=== PATIENT | male | born 1950 | race Caucasian/White ===

== ENCOUNTER 2020-05-31 11:25 | Emergency (ER) | payer MEDICARE, SELFPAY ==
--- NOTE | 2020-05-31 | ECG_ITS ---
Test Reason : REPEAT Blood Pressure : / mmHG Vent. Rate : 094 BPM Atrial Rate : 094 BPM P-R Int : 180 ms QRS Dur : 086 ms QT Int : 340 ms P-R-T Axes : 040 000 089 degrees QTc Int : 425 ms Normal sinus rhythm Nonspecific ST and T wave abnormality Cannot rule out inferior infarct Abnormal ECG When compared with ECG of 31-MAY-2020 11:44, No significant change was found Referred By: Ren Elmore Electronically Signed By:Wicho Coburn
--- NOTE | ~2020-05-31 | XR_ITS ---
EXAMINATION: XR CHEST CLINICAL INFORMATION: Chest pain COMPARISON: Chest 11/22/2007 TECHNIQUE: Frontal view of the chest was obtained. FINDINGS: No significant abnormality is noted involving the heart, lungs, mediastinum, bony thorax or soft tissues. XR/XR chest 1V IMPRESSION: Unremarkable chest examination.
--- NOTE | 2020-05-31 08:44 | ECG_ITS ---
Test Reason : CHEST PAIN Blood Pressure : / mmHG Vent. Rate : 066 BPM Atrial Rate : 066 BPM P-R Int : 204 ms QRS Dur : 082 ms QT Int : 402 ms P-R-T Axes : 027 -14 034 degrees QTc Int : 421 ms Normal sinus rhythm Inferior infarct , age undetermined Cannot rule out Anterior infarct , age undetermined Abnormal ECG When compared to the previous EKG of No significant changes seen Referred By: Ren Elmore Electronically Signed By:Wicho Coburn
[2020-05-31 11:30] VITALS: BP 170/100; PULSE 88; RESP 16; TEMP 37.1; O2SAT 99; BMI 28.7
--- NOTE | 2020-05-31 11:53 | ED_ITS ---
HPI - Chest Pain General Chief Complaint: Chest Pain Stated Complaint: chest pain Time Seen by Provider: 05/31/20 11:53 Source: patient Mode of arrival: ambulatory Limitations: no limitations History of Present Illness HPI narrative: 45 minutes of chest pain described as MD complaint: chest heaviness Onset (ago): minute(s) (45) Timing of current episode: constant Prior episodes: No Onset: during rest Pain location: substernal Pain radiation: left arm Severity: moderate Quality: tightness and other (heart burn) Relieving factors: nothing Exacerbating factors: exertion Treatment prior to arrival: none Risk Factors Coronary artery disease risk factors: hyperlipidemia and hypertension Related Data Allergies Allergy/AdvReac Type Severity Reaction Status Date / Time No Known Allergies Allergy Verified 05/31/20 11:32 Review of Systems Constitutional: Constitutional: Reports no additional constitutional complaints Eyes: Eyes: Reports no additional eye complaints ENT: Denies dizziness Cardiovascular: Cardiovascular: Reports no additional cardiovascular complaints Respiratory: Respiratory: Reports as per HPI Gastrointestinal: Gastrointestinal: Reports no additional gastrointestinal complaints Musculoskeletal: Musculoskeletal: Reports no additional musculoskeletal complaints Integumentary/Breasts: Skin/Breast: Denies rash Neurologic: Reports system reviewed and no additional complaints, except as documented, Denies dizziness and Denies Sensory deficit (Neuro) Psychiatric: Psychiatric: Denies anxiety PMF Past Medical History Medical History High cholesterol HTN (hypertension) Surgical History History of bladder surgery Knee joint replacement status Social History Social History Advance Directives: No Advance Directives Information Provided: No Physical Exam Vital Signs: Vital Signs: Last Vital Signs Temp 98.7 F 05/31/20 11:30 Pulse 88 05/31/20 12:41 Resp 16 05/31/20 11:30 BP 100/69 05/31/20 12:41 Pulse Ox 99 05/31/20 11:30 Body Mass Index 28.7 Const: General: healthy appearing Nutritional Appearance: average body habitus Orientation/consciousness: oriented to person and patient oriented x3 Limitations: no limitations HENMT: Head: Yes normal to inspection Ears: external ears normal General nose exam: Normal external nose present Mouth: Normal oral and palatal mucosa present and oropharynx normal Throat: Yes posterior oropharynx normal Eyes: General: appearance normal, both eyes and all related structures Neck: Other: supple Neck: Yes normal visual inspection Chest: Chest palpation & inspection: normal inspection of the chest Resp: Auscultation: clear to auscultation bilaterally Cardio: Jugular venous distension: no JVD Rate: regular rate Rhythm: regular rhythm Heart sounds: S1 normal heart sound present and S2 normal heart sound present GI: Inspection: Yes normal to inspection Palpation (GI): Soft to palpation, nontender and No hepatosplenomegaly present Auscultation: normal bowel sounds : General: Yes no CVA tenderness Back/Spine/Pelvis: Back: no CVA tenderness Skin: General skin exam: no rashes or lesions noted Neuro: General: oriented to person and patient oriented x3 Cranial nerves: Yes CN's II-XII intact bilaterally Motor exam (neuro): 5/5 motor strength present throughout Sensory Exam: No Sensory deficit (Neuro) Extrem: General: Yes normal to inspection Psych: Appearance: grossly normal Course Course Course Narrative: Discussed with Dr. Woo, invasive cardiology, will not take patient to laboratory administrative director will accept to PCU MDM - Chest Pain MDM Narrative Medical decision making narrative: initial EKG had st elevation in AVR only, i nvasive dermatologist and dermatopathologist states no immediate cath, subsequent EKG improved Differential Diagnosis Differential diagnosis: Likely unstable angina pectoris, st elevation myocardial infarction and chest pain Lab Data Result diagrams: 05/31/20 11:55 05/31/20 11:54 Labs: Lab Results 05/31/20 05/31/20 05/31/20 Range/Units 11:54 11:54 11:54 WBC (4.8-10.8) X10*3/uL RBC (4.60-5.80) X10*6/uL Hgb (14.0-18.0) g/dl Hct (42-52) % MCV (80-98) fL MCH (27.0-33.0) pg MCHC (31.0-36.0) g/dl RDW (11.0-16.0) % Plt Count (160-400) X10*3/uL MPV (9.4-12.4) fL Immature Gran % (Auto) (0.0-0.4) % Neut % (Auto) (45-73) % Lymph % (Auto) (20-40) % Mcpherson % (Auto) (2-11) % Eos % (Auto) (0-4) % Baso % (Auto) (0-2) % Lymph # (Auto) (1.2-4.9) X10*3/uL Mcpherson # (Auto) (0.1-1.2) X10*3/uL Eos # (Auto) (0.0-0.4) X10*3/uL Baso # (Auto) (0.0-0.2) X10*3/uL Abs Immat Gran (auto) (0.00-0.03) X10*3/uL Absolute Neuts (auto) (2.0-8.3) X10*3/uL Absolute Nucleated RBC (0.0-0.012) X10*3/uL Nucleated RBC % (auto) (0.0-0.2) /100WBC Hold Blue Top SEE NOTE Sodium 141 (135-145) mmol/L Potassium 4.1 (3.3-5.1) mmol/L Chloride 104 (96-108) mmol/L Carbon Dioxide 26 (22-29) mmol/L Anion Gap 15 (12-20) BUN 19 H (9-16) mg/dL Creatinine 0.93 (0.5-1.4) mg/dL Estim Creat Clear Calc 83.7 Estimated GFR > 60 Random Glucose 101 (60-115) mg/dL Calcium 8.9 (8.4-10.2) mg/dL Troponin I High Sens 4.5 (<3.5-35.0) ng/L 05/31/ Range/Units 11:55 WBC 6.7 (4.8-10.8) X10*3/uL RBC 4.91 (4.60-5.80) X10*6/uL Hgb 14.8 (14.0-18.0) g/dl Hct 43.6 (42-52) % MCV 88.8 (80-98) fL MCH 30.1 (27.0-33.0) pg MCHC 33.9 (31.0-36.0) g/dl RDW 12.4 (11.0-16.0) % Plt Count 166 (160-400) X10*3/uL MPV 9.7 (9.4-12.4) fL Immature Gran % (Auto) 0.5 H (0.0-0.4) % Neut % (Auto) 72.4 (45-73) % Lymph % (Auto) 16.2 L (20-40) % Mcpherson % (Auto) 7.4 (2-11) % Eos % (Auto) 2.7 (0-4) % Baso % (Auto) 0.8 (0-2) % Lymph # (Auto) 1.1 L (1.2-4.9) X10*3/uL Mcpherson # (Auto) 0.5 (0.1-1.2) X10*3/uL Eos # (Auto) 0.2 (0.0-0.4) X10*3/uL Baso # (Auto) 0.1 (0.0-0.2) X10*3/uL Abs Immat Gran (auto) 0.03 (0.00-0.03) X10*3/uL Absolute Neuts (auto) 4.8 (2.0-8.3) X10*3/uL Absolute Nucleated RBC 0.000 (0.0-0.012) X10*3/uL Nucleated RBC % (auto) 0.0 (0.0-0.2) /100WBC Hold Blue Top Sodium (135-145) mmol/L Potassium (3.3-5.1) mmol/L Chloride (96-108) mmol/L Carbon Dioxide (22-29) mmol/L Anion Gap (12-20) BUN (9-16) mg/dL Creatinine (0.5-1.4) mg/dL Estim Creat Clear Calc Estimated GFR Random Glucose (60-115) mg/dL Calcium (8.4-10.2) mg/dL Troponin I High Sens (<3.5-35.0) ng/L ECG Data ECG #1: Attestation: I personally reviewed and interpreted this ECG as follows: Interpretation: sinus 90, ST segment elevation AVR, ST depression I and AVL, V4-V6 ECG #2: Attestation: I personally reviewed and interpreted this ECG as follows: Interpretation: sinus 90, improved st depression laterally, ST segment down in AVR Critical Care Time Critical Care Time Attestation: I spent 40 minutes of critical care, with interventions, assessments, speaking to patient, consultants, and family. Discharge Plan Discharge Clinical Impression: Chest pain, ST elevation myocardial infarction (STEMI) Patient Disposition: Xfer Acute Care Hospital Transfer Details: cardiac care
[2020-05-31] MEDS: Heparin Sodium,Porcine 5,000 UNIT/ML VIAL 5000 UNIT IVPUSH (11:58)
[2020-05-31] MEDS: Ticagrelor 90 MG TABLET 180 MG PO (11:59)
[2020-05-31 12:00] VITALS: BP 124/79; BP 159/93; PULSE 100; PULSE 73; RESP 15; TEMP 36.8; O2SAT 97
[2020-05-31] MEDS: Nitroglycerin 0.4 MG TAB.SUBL SUBLINGUAL ×3 (12:00→12:15)
[2020-05-31] MEDS: Aspirin 325 MG TABLET PO (12:00)
[2020-05-31 12:01] LABS: MANUAL DIFF FLAG NO
[2020-05-31 12:07] VITALS: BP 115/70; PULSE 87
--- NOTE | 2020-05-31 12:08 | ECG_ITS ---
Test Reason : CP Blood Pressure : / mmHG Vent. Rate : 076 BPM Atrial Rate : 076 BPM P-R Int : 194 ms QRS Dur : 080 ms QT Int : 352 ms P-R-T Axes : 052 -05 078 degrees QTc Int : 396 ms Normal sinus rhythm Cannot rule out inferior infarct Lateral ST depressions - consider ischemia Abnormal ECG When compared with ECG of 20-NOV-2008 11:12, ST now depressed in Lateral leads Cannot rule out inferior infarct Referred By: Ren Elmore Electronically Signed By:Wicho Coburn
[2020-05-31 12:11] LABS: Basophils Absolute Auto 0.1 X10*3/uL (0.0-0.2); Basophils Percent Auto 0.8 % (0-2); Eosinophils Absolute Auto 0.2 X10*3/uL (0.0-0.4); Eosinophils Percent Auto 2.7 % (0-4); Hematocrit 43.6 % (42-52); Hemoglobin 14.8 g/dl (14.0-18.0); Imm Gran Abs Auto 0.03 X10*3/uL (0.00-0.03); Imm Gran Pct Auto 0.5 % (0.0-0.4); Lymphocytes Absolute Auto 1.1 X10*3/uL (1.2-4.9); Lymphocytes Percent Auto 16.2 % (20-40); Mean Corpuscular HGB Conc 33.9 g/dl (31.0-36.0); Mean Corpuscular Hemoglobin 30.1 pg (27.0-33.0); Mean Corpuscular Volume 88.8 fL (80-98); Mean Platelet Volume 9.7 fL (9.4-12.4); Monocytes Absolute Auto 0.5 X10*3/uL (0.1-1.2); Monocytes Percent Auto 7.4 % (2-11); Neutrophils Absolute Auto 4.8 X10*3/uL (2.0-8.3); Neutrophils Percent Auto 72.4 % (45-73); Platelet Count 166 X10*3/uL (160-400); Red Blood Count 4.91 X10*6/uL (4.60-5.80); Red Cell Distribution Width 12.4 % (11.0-16.0); White Blood Count 6.7 X10*3/uL (4.8-10.8)
--- NOTE | 2020-05-31 12:14 | PC.NURSE ---
@11:52AM DR FAUST ASKS FOR CARDIOLOGY INTERVENTIONALIST FROM [facility] TO BE PAGED [phone] [facility] STAT PAGE LINE UTILIZED @11:56AM DR LEON OF [facility] CALLS US BACK DR FAUST TAKES OVER CALL RIGHT AWAY @11:59 ROBERTO FROM [facility] HERE TO BOOK (AWARE OF BOOK AND HOLD D/T AWAITING ROOM ASSIGNMENT FROM [facility]) @12:12PM CRISTIN FROM [facility] PT TX LINE CALLS SAYS THIS PT WAS ACCEPTED BY DR FRIED AND THEY WILL CALL WHEN BED AVAILABLE ON THEIR PCU
[2020-05-31 12:15] VITALS: BP 113/74; PULSE 78
[2020-05-31 12:27] LABS: Anion Gap 15 (12-20); Blood Urea Nitrogen 19 mg/dL (9-16); Calcium 8.9 mg/dL (8.4-10.2); Carbon Dioxide 26 mmol/L (22-29); Chloride 104 mmol/L (96-108); Creatinine Clr Calc Pharmacy 83.7; Estimated Glomerular Filt Rate > 60; Glucose Random 101 mg/dL (60-115); Potassium 4.1 mmol/L (3.3-5.1); Sodium 141 mmol/L (135-145)
[2020-05-31 12:33] LABS: Troponin-I High Sensitivity 4.5 ng/L (<3.5-35.0)
[2020-05-31 12:41] VITALS: BP 100/69; PULSE 88
[2020-05-31] MEDS: Nitroglycerin/D5W 100 MG/250 ML INFUS..BTL IVCONT (12:41)
--- NOTE | 2020-05-31 14:13 | PC.NURSE ---
@9712 CALL PALCED TO [facility] PT TX LINE TO CHECK ON ROOM ASSIGNMENT FOR THIS PT ANGEL LUIS ANSWERS AND SAYS THEY ARE STILL WAITING FOR AVAILABLE BED FOR ASSIGNMENT @ THIS TIME
[2020-05-31 15:59] LABS: COVID-19 Test Negative (Negative)
[2020-05-31 18:00] VITALS: BP 101/68; PULSE 61
== END 2020-05-31 21:14 | disposition short-term general hospital (02) ==
PROVIDERS: Emergency Provider Emergency Medicine; PCP Internal Medicine
DX: I21.3 ST elevation (STEMI) myocardial infarction of unspecified site (principal); R07.9 Chest pain, unspecified; Z20.822 Contact with and (suspected) exposure to COVID-19; E78.5 Hyperlipidemia, unspecified; I10 Essential (primary) hypertension
CPT/HCPCS: 36415; 71045; 80048; 84484; 85025; 87635; 93005; 96365; 96366; 96374; 99285; 99291

== ENCOUNTER → 2020-06-24 14:19 | Outpatient (BNVA) | payer MEDICARE, SELFPAY | PROVIDERS: PCP Internal Medicine; Visit Provider Urology | DX: N40.1 Benign prostatic hyperplasia with lower urinary tract symptoms (principal); R33.9 Retention of urine, unspecified; R35.1 Nocturia | CPT/HCPCS: 51798; 81002; 99202 ==

== ENCOUNTER 2020-12-08 04:46 | Emergency (ER) | payer MEDICARE, SELFPAY ==
--- NOTE | ~2020-12-08 | XR_ITS ---
EXAMINATION: XR SHOULDER, LEFT CLINICAL INFORMATION: Pain COMPARISON: None TECHNIQUE: Four views of the left shoulder. FINDINGS: No fracture or dislocation. The glenohumeral joint is well aligned. Small osteophytes are present. The acromioclavicular joint is intact with mild hypertrophic degenerative change. The visualized lung is clear. Visualized ribs are intact. XR/XR shoulder LT min 2V IMPRESSION: No acute abnormality. Mild degenerative changes at the left shoulder.
--- NOTE | ~2020-12-08 | XR_ITS ---
EXAMINATION: XR SOFT TISSUE NECK CLINICAL INDICATION: Pain COMPARISON: None TECHNIQUE: 2 views of the soft tissue neck were obtained. FINDINGS: Soft tissue films of the neck demonstrate a normal larynx, pharynx and upper trachea. No soft tissue swelling or opaque foreign body is demonstrated. The epiglottis is unremarkable. Vertebral body height and alignment maintained. The lung apices are clear. XR/XR soft tissue neck IMPRESSION: Normal appearance of the neck soft tissues.
[2020-12-08 05:12] VITALS: BP 152/91; PULSE 75; RESP 20; O2SAT 98; BMI 27.9
--- NOTE | 2020-12-08 06:55 | ED.NECK ---
HPI - Neck Pain/Injury General Chief Complaint: Neck Pain/Injury Stated Complaint: shoulder and neck sharp pain Time Seen by Provider: 12/08/20 06:55 Source: patient Mode of arrival: ambulatory Limitations: no limitations History of Present Illness HPI Narrative: neck and shoulder pain woke up with stiff neck. Unable to sleep due to pain. He states that there was no injury. Just woke up with the pain. MD complaint: neck pain Onset (ago): hour(s) Radiation: left lateral Severity: moderate Quality: sharp Duration: constant Relieving factors: none Exacerbating factors: none Related Data Home Medications Medication Instructions Recorded Confirmed acetaminophen 500 mg tablet 1,000 mg PO TID 06/24/20 aspirin 81 mg tablet,delayed 81 mg PO DAILY 06/24/20 release atorvastatin 10 mg tablet 10 mg PO BEDTIME 06/24/20 atorvastatin 40 mg tablet 80 mg PO BEDTIME 06/24/20 bethanechol chloride 25 mg tablet 25 mg PO TID 06/24/20 clopidogrel 75 mg tablet 75 mg PO DAILY 06/24/20 docusate sodium 100 mg capsule 100 mg PO DAILY PRN 06/24/20 hydrochlorothiazide 25 mg tablet 25 mg PO DAILY 06/24/20 isosorbide mononitrate 30 mg 30 mg PO DAILY 06/24/20 tablet,extended release 24 hr metoprolol succinate 50 mg 50 mg PO DAILY 06/24/20 tablet,extended release 24 hr tamsulosin 0.4 mg capsule 0.4 mg PO DAILY 06/24/20 tramadol 50 mg tablet 50 mg PO Q8H PRN 06/24/20 Previous Rx's Medication Instructions Recorded cyclobenzaprine 10 mg tablet 10 mg PO TID #10 tab 12/08/20 naproxen 500 mg tablet (Naprosyn) 500 mg PO BID #20 tab 12/08/20 Allergies Allergy/AdvReac Type Severity Reaction Status Date / Time No Known Allergies Allergy Verified 06/24/20 14:31 Review of Systems Constitutional: Constitutional: Reports no additional constitutional complaints Eyes: Eyes: Reports no additional eye complaints ENT: Denies dizziness Cardiovascular: Cardiovascular: Reports no additional cardiovascular complaints Respiratory: Respiratory: Reports as per HPI Gastrointestinal: Gastrointestinal: Reports no additional gastrointestinal complaints Musculoskeletal: Musculoskeletal: Reports no additional musculoskeletal complaints Integumentary/Breasts: Skin/Breast: Denies rash Neurologic: Reports system reviewed and no additional complaints, except as documented, Denies dizziness and Denies Sensory deficit (Neuro) Psychiatric: Psychiatric: Denies anxiety [facility] Past Medical History Medical History High cholesterol HTN (hypertension) Surgical History History of bladder surgery Knee joint replacement status Social History Social History Advance Directives: No Advance Directives Information Provided: Yes Physical Exam Vital Signs: Vital Signs: Last Vital Signs Pulse 75 12/08/20 05:12 Resp 20 12/08/20 05:12 BP 152/91 H 12/08/20 05:12 Pulse Ox 98 12/08/20 05:12 Body Mass Index 27.9 Const: General: healthy appearing Nutritional Appearance: average body habitus Orientation/consciousness: oriented to person and patient oriented x3 Limitations: no limitations HENMT: Head: Yes normal to inspection Ears: external ears normal General nose exam: Normal external nose present Mouth: Normal oral and palatal mucosa present and oropharynx normal Throat: Yes posterior oropharynx normal Eyes: General: appearance normal, both eyes and all related structures Neck: Other: left trapezius tenderness with head tilted to right and patient unable to range fully to his left, no evidence of rash or vesicles Chest: Chest palpation & inspection: normal inspection of the chest Resp: Auscultation: clear to auscultation bilaterally Cardio: Jugular venous distension: no JVD Rate: regular rate Rhythm: regular rhythm Heart sounds: S1 normal heart sound present and S2 normal heart sound present GI: Inspection: Yes normal to inspection Palpation (GI): Soft to palpation, nontender and No hepatosplenomegaly present Auscultation: normal bowel sounds : General: Yes no CVA tenderness Back/Spine/Pelvis: Back: no CVA tenderness Skin: General skin exam: no rashes or lesions noted Neuro: General: oriented to person and patient oriented x3 Cranial nerves: Yes CN's II-XII intact bilaterally Motor exam (neuro): 5/5 motor strength present throughout Sensory Exam: No Sensory deficit (Neuro) Extrem: General: Yes normal to inspection Psych: Appearance: grossly normal Course Reevaluation(s) Reevaluation #1: Patient with classic torticollis will start NSAIDS and flexeril Time: 07:03 MDM - Neck Pain/Injury Imaging Data shoulder: Radiologist's impression: IMPRESSION: No acute abnormality. Mild degenerative changes at the left shoulder. soft tissue neck: Radiologist's impression: IMPRESSION: Normal appearance of the neck soft tissues. Discharge Plan Discharge Clinical Impression: Torticollis Strain of neck muscle Qualifiers: Encounter type: initial encounter Qualified Code(s): S16.1XXA - Strain of muscle, fascia and tendon at neck level, initial encounter Patient Disposition: Home, Self-Care Instructions: Muscle Strain (ED) Prescriptions: New cyclobenzaprine 10 mg tablet 10 mg PO TID Qty: 10 RF: 0 naproxen [Naprosyn] 500 mg tablet 500 mg PO BID Qty: 20 RF: 0 Referrals: Cristi Hood MD [Primary Care Provider] - 1 week
[2020-12-08] MEDS: Ketorolac Tromethamine 60 MG/2 ML VIAL IM (07:28)
[2020-12-08 07:33] VITALS: BP 155/95; PULSE 71; RESP 16; TEMP 36.6; O2SAT 98
== END 2020-12-08 07:43 | disposition home or self-care (01) ==
PROVIDERS: Emergency Provider Emergency Medicine; PCP Internal Medicine
DX: M43.6 Torticollis (principal); S16.1XXA Strain of muscle, fascia and tendon at neck level, initial encounter; I10 Essential (primary) hypertension; X58.XXXA Exposure to other specified factors, initial encounter; Y93.9 Activity, unspecified; Y92.9 Unspecified place or not applicable; Y99.9 Unspecified external cause status
CPT/HCPCS: 70360; 73030; 96372; 99284; J1885

== ENCOUNTER 2023-11-02 08:02 | Outpatient (AMB) | payer MEDICARE, SELFPAY ==
--- NOTE | 2023-11-02 08:05 | MHC.OFFWIV ---
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 Pt states he fell right on his knee and states he has a little swelling and pain when he walks if he puts to much pressure on it. Patient Tobacco Use Status: Never used Tobacco Allergies No Known Allergies Allergy (Verified 11/02/23 08:12) HPI HPI Comments History of Present Illness Details 72 y/o male patient who presents to the walk in clinic with c/o right knee pain. Pt injured his knee Weds, when walking his Dog. [facility] Medical History High cholesterol HTN (hypertension) Surgical History History of bladder surgery Knee joint replacement status Social History Patient Tobacco Use Status: Never used Tobacco Review of Systems Const All systems reviewed & are unremarkable except as noted in HPI and below Physical Exam Vital Signs: Last Vital Signs Pulse 67 11/02/23 08:06 BP 118/70 11/02/23 08:06 Pulse Ox 97 11/02/23 08:06 Oxygen Delivery Method Room Air 11/02/23 08:06 BMI result Body Mass Index 29.0 Const General: cooperative and no acute distress Orientation/consciousness: patient oriented x3 Skin General skin exam: no rashes or lesions noted Neuro General: patient oriented x3, gait normal and moves all extremities Extrem Right lower extremity: normal to inspection and knee Details: normal ROM; no tenderness, no swelling, no crepitus and no deformity Left lower extremity: normal to inspection and full ROM Psych Speech and movement: Normal speech and movement present Assessment & Plan Assessment & Plan (1) Contusion of right knee: Code(s): S80.01XA - Contusion of right knee, initial encounter Qualifiers: Encounter type: initial encounter Qualified Code(s): S80.01XA - Contusion of right knee, initial encounter Plan: No obvious Fracture. IceHot Elevate and Rest NSAIDs or Acetaminophen. Coding Level of Care Code Est Pt Level 3 (20523) Diagnoses Contusion of right knee, initial encounter S80.01XA Encounter type: initial encounter Time Spent (min) 15
[2023-11-02 08:06] VITALS: BP 118/70; PULSE 67; O2SAT 97; BMI 29.0
== END 2023-11-02 08:28 | disposition home or self-care (01) ==
PROVIDERS: PCP Internal Medicine; Visit Provider Nurse Practitioner Family
DX: S80.01XA Contusion of right knee, initial encounter (principal)
CPT/HCPCS: 99213

== ENCOUNTER 2023-11-30 08:46 | Outpatient (REF) | payer MEDICARE, SELFPAY ==
--- NOTE | ~2023-11-30 | XR_ITS ---
EXAMINATION: XR KNEE, RIGHT CLINICAL INFORMATION: M17.11 - Unilateral primary osteoarthritis, right knee COMPARISON: None available. TECHNIQUE: Three views of the right knee. FINDINGS: There is mild medial and lateral as well as patellofemoral compartment joint space narrowing, with subtle marginal osteophytic spurs. There is chondrocalcinosis present. Findings suggest CPPD. There is normal alignment. No significant joint effusion present. Soft tissues demonstrate prepatellar soft tissue swelling. This is nonspecific and could be on the basis of bursitis. XR/XR knee RT 3V IMPRESSION: 1. No acute findings right knee. No significant joint effusion. 2. Chondrocalcinosis suggesting CPPD. 3. Mild tricompartmental arthritis. 4. Mild prepatellar soft tissue swelling, nonspecific. Electronically signed by: Warner Talamantes MD 02/07/2024 04:08 PM [facility]
--- NOTE | ~2023-11-30 | XR_ITS ---
EXAMINATION: XR KNEE, LEFT CLINICAL INFORMATION: M25.562 - Pain in left knee COMPARISON: None available. TECHNIQUE: AP view of the left knee. FINDINGS: No fracture, dislocation, or suspicious bone lesion. Normal alignment. Total right knee arthroplasty in place, with components intact and in anatomic alignment. No complication seen. Soft tissues appear normal. XR/XR knee LT 1V IMPRESSION: Right knee arthroplasty without complication. No acute findings. Electronically signed by: Warner Talamantes MD 02/07/2024 04:06 PM [facility]
== END 2023-11-30 08:47 | disposition home or self-care (01) ==
LOC: HO.XRAY 08:46
PROVIDERS: PCP Family Medicine; Visit Provider Physician Assistant
DX: S80.01XA Contusion of right knee, initial encounter (principal); M17.11 Unilateral primary osteoarthritis, right knee; M25.562 Pain in left knee
CPT/HCPCS: 73560; 73562; 99202

== ENCOUNTER → 2023-11-30 08:55 | Outpatient (BNV) | payer MEDICARE, SELFPAY | PROVIDERS: PCP Family Medicine; Visit Provider Radiology Diagnostic Radiology | DX: M17.11 Unilateral primary osteoarthritis, right knee (principal); M25.562 Pain in left knee | CPT/HCPCS: 73560; 73562 ==

== ENCOUNTER 2023-11-30 10:24 | Outpatient (AMB) | payer MEDICARE, SELFPAY ==
[2023-11-30 10:25] VITALS: BMI 29.0
--- NOTE | 2023-11-30 10:25 | MHC.OFFVIS ---
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 Patient reports a couple of days before his [facility] walk in visit on 11/02/23 he fell landing on his right knee. His pain has improved however he has ongoing soreness located at the medial aspect of knee. Denies numbness or tingling. Hx of knee ~1977, unsure of which knee. 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 He reports about a couple of days before his walk in visit on 11/02/23, he fell landing on his right knee. He has improvement in his pain however he continues to have soreness at the medial aspect of his knee. He denies any numbness or tingling. He has a history of left knee in 1977. 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 Review of Systems Const All systems reviewed & are unremarkable except as noted in HPI and below Physical Exam Vital Signs: BMI result Body Mass Index 29.0 Const General: cooperative, healthy appearing, comfortable, no acute distress, well developed and alert Orientation/consciousness: patient oriented x3 HEENT Head: Yes normal to inspection, Yes normocephalic and Yes atraumatic Eyes General: appearance normal, both eyes and all related structures Resp Effort & Inspection: normal respiratory effort and able to speak in complete sentences Cardio Rate: regular rate Peripheral pulses: Peripheral pulses 2+ throughout GI Palpation (GI): Soft to palpation Skin Lesions: no lesions Rashes: no rashes Neuro General: patient oriented x3 Extrem Other: Right knee: Normal to inspection. No swelling, no areas of ecchymosis. No tenderness to palpation over the medial or lateral jointline. He has full ROM. NVI. Results Reviewed Results Reviewed: xray of the right knee obtained today show mild oa, no fractures or dislocations. Assessment & Plan Assessment & Plan (1) Contusion of right knee: Code(s): S80.01XA - Contusion of right knee, initial encounter Category: Medical (2) Osteoarthritis of right knee: Code(s): M17.11 - Unilateral primary osteoarthritis, right knee Category: Medical Plan He will continue with activities as tolerated in absence of pain and no limitations. If symptoms persist or worsen, patient will contact the office, otherwise follow-up as needed. Orders: Orders XR knee RT 3V Today M17.11 - Unilateral primary osteoarthritis, right knee XR knee LT 1V Today M25.562 - Pain in left knee Patient Instructions: Scribed for Jaja William PA-C, by Giuseppe Rossi medical assistant instructor, on 11/30/2023 at 10:30 AM EST.? I, Jaja William PA-C, have personally reviewed and agree with the information entered by the scribe. Coding Level of Care Code New Pt Level 3 (04842) Complex EM visit Add On G2211 Diagnoses Contusion of right knee S80.01XA Osteoarthritis of right knee M17.11
== END 2023-11-30 11:10 | disposition home or self-care (01) ==
PROVIDERS: PCP Internal Medicine; Visit Provider Physician Assistant
DX: S80.01XA Contusion of right knee, initial encounter (principal); M17.11 Unilateral primary osteoarthritis, right knee
CPT/HCPCS: 99203; G2211

== ENCOUNTER 2024-01-24 13:35 | Outpatient (AMB) | payer MEDICARE, SELFPAY ==
--- NOTE | 2024-01-24 13:44 | A.OFFVIS_ITS ---
Intake Visit Reasons: OV-Contusion of right knee-pain worsen Intake Note: Alexander a 70 year old male who presents today for a post operative LT Shoulder , DOS: 01/11/24 DRAdan Patient reports that his pain increased a couple of weeks after his last visit. His pain has improved since he made this appointment. He does mention tenderness at the medial aspect of knee. Denies any recent injury. Allergies No Known Allergies Allergy (Verified 01/24/24 13:48) HPI HPI OV-Contusion of right knee-pain worsen: Details: 73-year-old gentleman who returns to the office today for ongoing right knee pain. He states the pain is located along the medial aspect of the knee. He has some instances where he feels catching in the knee. No sensations of instability. He is able to weightbear as tolerated without difficulty. 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 Review of Systems Const All systems reviewed & are unremarkable except as noted in HPI and below Physical Exam Const General: cooperative, healthy appearing, comfortable, no acute distress, well developed and alert Orientation/consciousness: patient oriented x3 HEENT Head: Yes normal to inspection, Yes normocephalic and Yes atraumatic Eyes General: appearance normal, both eyes and all related structures Resp Effort & Inspection: normal respiratory effort and able to speak in complete sentences Cardio Rate: regular rate Peripheral pulses: Peripheral pulses 2+ throughout GI Palpation (GI): Soft to palpation Skin Lesions: no lesions Rashes: no rashes Neuro General: patient oriented x3 Extrem Other: Right knee: Normal to inspection. No swelling, no areas of ecchymosis. No tenderness to palpation over the medial or lateral jointline. Positive Shae's He has full ROM. NVI. Assessment & Plan Assessment & Plan (1) Osteoarthritis of right knee: Code(s): M17.11 - Unilateral primary osteoarthritis, right knee Category: Medical Plan: We discussed options today and given the continued discomfort with daily activities an MRI of the right knee has been ordered to further evaluate the source of his pain once this is complete we will contact him to discuss options. He is content with this plan. Orders: Orders MR knee RT wo con 01/24/24 M17.11 - Unilateral primary osteoarthritis, right knee Coding Level of Care Code Est Pt Level 3 (93102) Complex EM visit Add On G2211 Diagnoses Osteoarthritis of right knee M17.11
== END 2024-01-24 14:50 | disposition home or self-care (01) ==
PROVIDERS: PCP Family Medicine; Visit Provider Physician Assistant
DX: M17.11 Unilateral primary osteoarthritis, right knee (principal)
CPT/HCPCS: 99213; G2211

== ENCOUNTER → 2024-01-24 13:35 | Outpatient (BNVA) | payer MEDICARE, SELFPAY | PROVIDERS: PCP Family Medicine; Visit Provider Physician Assistant | DX: M17.11 Unilateral primary osteoarthritis, right knee (principal) | CPT/HCPCS: 99212 ==

== ENCOUNTER 2024-02-07 08:21 | Outpatient (REF) | payer MEDICARE, SELFPAY ==
--- NOTE | ~2024-02-07 | XR_ITS ---
EXAMINATION: XRAY ORBITS CLINICAL INFORMATION: PRE-MRI COMPARISON: None. TECHNIQUE: 2 views of the orbits FINDINGS: No radiopaque foreign body in the orbits. NO fracture XR/XR pre mri screening IMPRESSION: No radiopaque foreign body in the orbits. Electronically signed by: Papo Ferrer MD 02/07/2024 01:14 PM [facility]
--- OUTSIDE RECORDS SUMMARY | 2024-02-12 23:56 | XMS_ITS ---
Author Name [facility] Organization Unknown History of Medication Use Medication Directions Dispensed Refills Start Date End Date Stat atorvastatin 80 mg tablet TAKE 1 TABLET BY MOUTH DAILY. 02/16/2023 active amoxicillin 500 mg tablet TAKE 4 TABLETS BY MOUTH 1 HOUR PRIOR TO DENTAL APPOINTMENT. 02/16/2023 active
== END 2024-02-07 08:22 | disposition home or self-care (01) ==
LOC: HO.XRAY 08:21
PROVIDERS: Visit Provider Radiology Diagnostic Radiology
DX: Z13.89 Encounter for screening for other disorder (principal)

== ENCOUNTER 2024-02-25 07:54 | Outpatient (REF) | payer MEDICARE, SELFPAY ==
--- NOTE | ~2024-02-25 | MR_ITS ---
EXAMINATION: MR KNEE WITHOUT CONTRAST RIGHT CLINICAL INFORMATION: Unilateral primary osteoarthritis, right knee M17.11. Right knee pain medial, status post fall . COMPARISON: XR right knee 11/30/2023. TECHNIQUE: MRI of the knee without contrast was performed using routine sequences on a high-field scanner. FINDINGS: MENISCI: Medial Meniscus: Complex tearing involving the medially extruded meniscal body with oblique inner margin and femoral articular surface components. Superiorly displaced meniscal flap measuring up to 0.6 cm in craniocaudal dimension. Complex tearing extends through the inner two thirds of the posterior horn. Lateral Meniscus: Nondisplaced oblique inner margin tear of the meniscal body with degenerative intrasubstance signal. Complex tearing of the posterior root which is attenuated and irregular. LIGAMENTS: Cruciate: Diffusely increased T2 signal throughout the anterior cruciate ligament consistent with mucoid degeneration. More mild degenerative signal within the posterior cruciate ligament. Collateral: Intact. EXTENSOR MECHANISM: Minimal distal quadriceps tendinosis. Intact patellar tendon. Normal patellofemoral alignment. ARTICULAR CARTILAGE/BONE: Patellofemoral Compartment: Lateral patellar facet articular cartilage fissuring with minimal subchondral cystic change. Tiny marginal osteophytes. Medial Compartment: Articular cartilage thinning and signal heterogeneity with tiny marginal osteophytes. Lateral Compartment: Mild articular cartilage signal heterogeneity with tiny marginal osteophytes. JOINT FLUID AND BURSAE: Small joint effusion and trace Aranda's cyst. MR/MR knee RT wo con IMPRESSION: 1. Complex tearing of the medial meniscal body with oblique inner margin and femoral articular surface components. Complex tearing extends through the inner two thirds of the posterior horn. 2. Nondisplaced oblique inner margin tear of the lateral meniscal body with complex tearing of the posterior root. 3. Mucoid degeneration of the anterior cruciate ligament with more mild degenerative signal within the posterior cruciate ligament. 4. Minimal distal quadriceps tendinosis. 5. Mild tricompartmental osteoarthritis. Small joint effusion and trace Aranda's cyst. Electronically signed by: Daniel Luther MD 02/28/2024 10:18 AM [facility]
== END 2024-02-25 07:55 | disposition home or self-care (01) ==
LOC: HO.MRI 07:54
PROVIDERS: PCP Family Medicine; Visit Provider Physician Assistant
DX: M17.11 Unilateral primary osteoarthritis, right knee (principal)
CPT/HCPCS: 73721

== ENCOUNTER 2024-03-31 09:19 | Outpatient (AMB) | payer MEDICARE, SELFPAY ==
[2024-03-31 09:34] VITALS: BMI 29.0
--- NOTE | 2024-03-31 09:34 | MHC.OFFVIS ---
Vital Signs 03/31/24 09:34 Height 5 ft 10 in Weight 202 lb BMI 29.0 Intake Visit Reasons: OV- Right knee MRI review Intake Note: Bernard is a 73 year old male who presents today for a Right Knee MRI review. Patient reports medial right knee pain and experiences occasional catching s/p trip and fall in 11/02/23. Last seen with Jaja who ordered MRI. IMPRESSION: 1. Complex tearing of the medial meniscal body with oblique inner margin and femoral articular surface components. Complex tearing extends through the inner two thirds of the posterior horn. 2. Nondisplaced oblique inner margin tear of the lateral meniscal body with complex tearing of the posterior root. 3. Mucoid degeneration of the anterior cruciate ligament with more mild degenerative signal within the posterior cruciate ligament. 4. Minimal distal quadriceps tendinosis. 5. Mild tricompartmental osteoarthritis. Small joint effusion and trace Aranda's cyst. Allergies No Known Allergies Allergy (Verified 01/24/24 13:48) HPI HPI OV- Right knee MRI review: Details: Bernard is a 73 year old male who presents today for a Right Knee MRI review. Patient reports medial right knee pain and experiences occasional catching s/p trip and fall in 11/02/23. Last seen with Jaja who ordered MRI. Overall he has minimal to no pain. He is not limited in any way. 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 Mild discomfort with medial joint line palpation. Negative Shae's. Results Reviewed Results Reviewed: I personally reviewed the MR images. IMPRESSION: 1. Complex tearing of the medial meniscal body with oblique inner margin and femoral articular surface components. Complex tearing extends through the inner two thirds of the posterior horn. 2. Nondisplaced oblique inner margin tear of the lateral meniscal body with complex tearing of the posterior root. 3. Mucoid degeneration of the anterior cruciate ligament with more mild degenerative signal within the posterior cruciate ligament. 4. Minimal distal quadriceps tendinosis. 5. Mild tricompartmental osteoarthritis. Small joint effusion and trace Aranda's cyst. Assessment & Plan Assessment & Plan (1) Degenerative tear of meniscus: Code(s): M23.309 - Other meniscus derangements, unspecified meniscus, unspecified knee Category: Medical Plan: This is a 73-year-old gentleman with radiographs suggesting medial compartment arthritis and MRI showing degenerative medial meniscus tear and posterior lateral meniscus tear. His symptoms are minimal. He does not have pain and does not feel limited by this. He is 73. The indications for arthroscopy would be pain in the setting of meniscus tear without arthritis. He does not have pain and therefore I do not recommend surgery. I discussed that he may develop worsening pain and arthritis in the future but that surgery would not necessarily change that risk. He will let me know if he develops pain. Coding Level of Care Code Est Pt Level 4 (15751) Diagnoses Degenerative tear of meniscus M23.309
--- OUTSIDE RECORDS SUMMARY | 2024-03-31 13:39 | XMS_ITS | Clinical Summary ---
Author Organization [facility] Address [address] [place] [address] Care Team Providers Care [employer] Name Role Phone Cristi Hood MD Primary Care Provider [phone] Allergies No known active allergies Medications Medication Sig Dispensed Refills Start Date End Date Status hydroCHLOROthiazide (HYDRODIURIL) tablet 25 mg TAKE ONE TABLET BY MOUTH EVERY DAY 2 10/30/2018 Active naproxen (NAPROSYN) 500 MG tablet Take 500 mg by mouth 2 (two) times a day with meals. 1 11/27/2018 Active tamsulosin (FLOMAX) 0.4 MG CAPS Take 0.4 mg by mouth. 0 11/27/2018 Active celecoxib (CeleBREX) 200 MG capsule Take 200 mg by mouth daily. 0 03/10/2020 Active gabapentin (NEURONTIN) 300 MG capsule TAKE ONE CAPSULE BY MOUTH AT BEDTIME 0 03/10/2020 Active JANTOVEN 1 MG tablet Take 5 tablets daily or as directed by physician 50 tablet 0 03/26/2020 Active sulfamethoxazole-tr imethoprim (Bactrim DS) 800-160 MG per tablet Take 1 tablet (160 mg of trimethoprim total) by mouth 2 (two) times a day. 28 tablet 2 04/02/2020 Active PAIN RELIEF EXTRA STRENGTH 500 MG tablet Take 2 tablets (1,000 mg total) by mouth 3 (three) times a day. 90 tablet 1 06/15/2020 Active traMADol (ULTRAM) 50 MG tablet Take 1 tab every 8 hours as needed for pain 40 tablet 0 06/15/2020 Active traMADol (ULTRAM) 50 MG tablet Take 1 tab every 8 hours as needed for pain 90 tablet 0 08/10/2020 Active aspirin 81 MG EC tablet Take 81 mg by mouth. 0 06/03/2020 Active clopidogrel (PLAVIX) 75 MG tablet Take 75 mg by mouth. 0 06/24/2020 Active isosorbide mononitrate (IMDUR) 30 MG 24 hr tablet Take 30 tablets by mouth. 0 06/24/2020 Active metoprolol succinate (TOPROL-XL) 24 hr tablet 50 mg Take 50 mg by mouth. 0 06/24/2020 Active atorvastatin (LIPITOR) tablet 40 mg Take 80 mg by mouth every night at bedtime. 0 02/06/2021 Active cyclobenzaprine (FLEXERIL) 10 MG tablet Take 10 mg by mouth 3 (three) times a day. 0 12/08/2020 Active amoxicillin (AMOXIL) 500 MG tablet Take 4 tabs 1 hour prior to dental appointment 20 tablet 3 02/14/2022 Active Active Problems Problem Noted Date Diagnosed Date Knee stiffness, left 02/18/2021 Postop check 03/23/2020 Tears of meniscus and ACL of left knee 9 Acute medial meniscus tear, left, initial encoun ter 02/11/2019 Left medial knee pain 02/11/2019 Aranda's cyst, unruptured, left 01/01/2019 Family History Medical History Relation Name Comments Hypertension Father Hypertension Mother Relation Name Status Comments Father Mother Social History Tobacco Use Types Packs/Day Years Used Date Smoking Tobacco: Former Cigarettes 1971 Smokeless Tobacco: Never Alcohol Use Standard Drinks/Week Comments No 0 (1 standard drink = 0.6 oz pur e alcohol) Sex and Gender Information Value Date Recorded Sex Assigned at Not on file Gender Identity Not on file Sexual Orientation Not on file Job Start Date Occupation Industry Not on file Not on file Not on file Last Filed Vital Signs Vital Sign Reading Time Taken Comments Blood Pressure - - Pulse - - Temperature - - Respiratory Rate - - Oxygen Saturation - - Inhaled Oxygen Concentration - - Weight 85.7 kg (189 lb) 01/01/2019 3:01 PM EDT Height 175.3 cm (5' 9 ) 01/01/2019 3:01 PM EDT Body Mass Index 27.91 01/01/2019 3:01 PM EDT Plan of Treatment Health Maintenance Due Date Last Done Comments Hepatitis C Screening 1950 COVID-19 Vaccine (#1) 05/17/1950 Depression Screening 1961 Preventative Health Evaluation 11/18/1967 Colon Cancer Screening (Colonoscopy) 1994 Shingrix-Zoster Vaccine (1 o f 2) 11/18/1999 Fall Risk Assessment 2014 DTap / Tdap / Td (2 - Td or Tdap) 08/14/2019 08/13/2009 Influenza Vaccine (#1) 2023 01/19/2020 RSV Adult > 60+ Yrs or (1 - 1-dose 75+ series) 2024 Pneumococcal Vaccine Completed 02/25/2018, 04/12/2015 Hepatitis B Vaccines Aged Out No long er eligible based on patient's age to complete this topic RSV Ped < 20 months Aged Out No longe r eligible based on patient's age to complete this topic Care Teams [employer] Workers Relationship Specialty Start Date End Date Cristi Hood MD PCP - General Internal Medicine 12/17/18
--- OUTSIDE RECORDS SUMMARY | 2024-03-31 13:39 | XMS_ITS | Patient Health Record ---
Author Organization [facility] Address [address] [place] [address] Care Team Providers Care [employer] Officer Name Role Phone Shakeel Vazquez MD Primary Care Provider Tal wahl Yenny Varelae Unavailable [phone] Allergies No Known Allergies Results Component Value Reference Range Notes X ray : Foot, left 3V Reviewed date:10/30/2023 05:28:28 PM Interpretation:See Examination above Performing Lab: Notes/Report: See Examination above X ray : Foot, right 3V Reviewed date:10/30/2023 05:28:40 PM Interpretation:See Examination above Performing Lab: Notes/Report: See Examination above Reason For Referral No Information Medications Medication SIG (Take, Route, Frequency, Duration) Notes Start Date End Date Status Clopidogrel Bisulfate 75 MG 1 tablet Orally Once a day for 30 day(s) Not-Taking Aspirin Low Dose 81 MG TAKE ONE TABLET B Y MOUTH EVERY DAY Oral for 90 Not-Taking Metoprolol Succinate ER 50 MG 1 tablet Orally Once a day for 30 days Active Isosorbide Mononitrate ER 30 MG TAKE ONE TABLET BY MOUTH EVERY DAY Oral for 90 Not-Taking Night Splint AFO - L1930 1 wear at rest for 30 days Active Clopidogrel Bisulfate 75 MG TAKE ONE TABLET BY MOUTH EVERY DAY Oral for 90 Not-Taking Tamsulosin HCl 0.4 MG 1 capsule Orally O nce a day for 30 day(s) Active Metoprolol Succinate ER 50 MG TAKE ONE TABLET BY MOUTH EVERY DAY Oral for 90 Not-Taking Pneumatic Compression Boot 30mm Hg as directed over swollen feet and legs as directed for . 03/17/2022 Not-Taking Acetaminophen Extra Strength 500 MG 2 tablet as needed Orally every 6 hrs for 10 days 02/02/2022 Not-Taking Isosorbide Mononitrate ER 30 MG 1 tablet in the morning Orally Once a day for 30 day(s) Not-Taking Tamsulosin HCl 0.4 MG TAKE ONE CAPSULE B Y MOUTH EVERY DAY 30 MINUTES AFTER THE SAME MEAL EVERY DAY Oral for 90 Not-Taking Aspirin Low Dose Act keaton Atorvastatin Calcium 40 MG TAKE TWO TABL ETS BY MOUTH AT BEDTIME Oral for 90 Not-Taking Atorvastatin Calcium Active Atorvastatin Calcium 40 MG 1 tablet Oral ly Once a day for 30 day(s) Not-Taking Gabapentin 300 MG 1 capsule Orally at bedtime for 10 days 02/02/2022 Not-Taking Ibuprofen 800 MG 1 tablet every Orall y every 6 hrs for 10 days 02/02/2022 Not-Taking Immunizations Vaccine Route Administration Date Status Comme nts COVID-19 Moderna Vaccine Unknown 05/30/2021 Administere d Unsure of dates Social History Tobacco Use: Social History Observation Description Date Details (start date - stop date) Never Smoker NA - NA Tobacco use other than smoking: Question Answer Notes Are you an other tobacco user? No Tobacco Control (Standard) Question Answer Notes Tobacco use: Nonsmoker Additional Findings: Tobacco non-user Ex-cigaret te smoker Problems Problem Type SNOMED Code ICD Code Onset Dates Problem Status W/U Status Risk Notes Problem Acquired hallux valgus (70144248) Hallux valgus (acquired), left foot (M20.12) Active confirmed Problem Localized, primary osteoarthritis of the ankle and/or foot (362053564) Primary osteoarthritis, left ankle and foot (M19.072) Active confirmed Problem Acquired hallux valgus (37562804) Hallux valgus (acquired), right foot (M20.11) Active confirmed Problem [id number] Plantar fasciitis, right (M72.2) Active confirmed Problem Osteoarthritis of midtarsal joint of left foot (0062376229260309) Osteoarthritis of midtarsal joint of left foot (M19.072) Active confirmed Problem Osteoarthritis of midtarsal joint of right foot (1894803763597152) Osteoarthritis of midtarsal joint of right foot (M19.071) Active confirmed Problem 18823992 Essential hypertension (I10) Active confirmed Vital Signs Blood pressure diastolic 81 mm Hg 03/27/2024 Height 7by82ao in 03/27/2024 Blood pressure systolic 125 mm Hg 03/27/2024 Weight 200 lbs 03/27/2024 BMI 28.69 kg/m2 03/27/2024 Procedures Procedure Date Ordered Date Performed Result Body Sit e 11246,N8636-[id number] TENDON SHEATH/LIGAMENT 01/03/2024 N/A ,S9161-[id number] TENDON SHEATH/LIGAMENT 03/27/2024 N/A Encounters Encounter Location Date Provider Diagnosis [address] [place] [address] 10/30/2023 Gabrielle Black Pain in left foot M79.672 ; Pain in left ankle and joints of left foot M25.572 ; Bursitis of left foot M77.52 ; Osteoarthritis of midtarsal joint of left foot M19.072 ; Pain in right foot M79.671 ; Pain in right ankle and joints of right foot M25.571 ; Bursitis of right foot M77.51 ; 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 ; Plantar fasciitis, bilateral M72.2 ; Calcaneal spur, right foot M77.31 ; Other myositis of right foot M60.871 ; Calcaneal spur, left foot M77.32 and Other myositis of left foot M60.872 [facility] [address] [place] [address] 01/03/2024 Gabrielle Black Pain in left foot M79.672 ; Pain in left ankle and joints of left foot M25.572 ; Bursitis of left foot M77.52 ; Osteoarthritis of midtarsal joint of left foot M19.072 ; Pain in right foot M79.671 ; Pain in right ankle and joints of right foot M25.571 ; Bursitis of right foot M77.51 ; 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 ; Plantar fasciitis, bilateral M72.2 ; Calcaneal spur, right foot M77.31 ; Other myositis of right foot M60.871 ; Calcaneal spur, left foot M77.32 and Other myositis of left foot M60.[address] [place] [address] 02/13/2024 Gabrielle Black Bursitis of left al t M77.52 ; Plantar fasciitis, bilateral M72.2 ; Osteoarthritis of midtarsal joint of left foot M19.072 ; Bursitis of right foot M77.51 ; 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 ; Other myositis of right foot M60.871 and Other myositis of left foot M60.[address] [address] 03/27/2024 Gabrielle Black Pain in right foot M79.671 ; Plantar fasciitis, right M72.2 ; Pain in right ankle and joints of right foot M25.571 ; Bursitis of right foot M77.51 ; Calcaneal spur, right foot M77.31 and Other myositis of right foot M60.[address] [address] 03/20/2024 Gabrielle Varela Assessments Encounter Date Diagnosis (ICD Code) Assessment Notes Treatment Notes Treatment Clinical Notes Section Notes 10/30/2023 Pain in left ankle and joints of left foot (ICD-10 - M25.572) 10/30/2023 Pain in left foot (ICD-10 - M79.672) 01/03/2024 Pain in left ankle and joints of left foot (ICD-10 - M25.572) 01/03/2024 Pain in left foot (ICD-10 - M79.672) 02/13/2024 Bursitis of left foot (ICD-10 - M77.52) 02/13/2024 Plantar fasciitis, bilateral (ICD-10 - M72.2) Response to treatment - Improvement 03/27/2024 Pain in right foot (ICD-10 - M79.671) n 03/27/2024 Plantar fasciitis, right (ICD-10 - M72.2) Patient Educated with: RICE THERAPY.pdf (RICE THERAPY.pdf) Patient Educated with: INJECTIONTHER APY.pdf (INJECTIONTHE RAPY.pdf) n 03/27/2024 Pain in right ankle and joints of right foot (ICD-10 - M25.571) n 02/13/2024 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-10 - M19.072) 01/03/2024 Bursitis of left foot (ICD-10 - M77.52) 10/30/2023 Bursitis of left foot (ICD-10 - M77.52) 01/03/2024 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-10 - M19.072) 10/30/2023 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-10 - M19.072) 02/13/2024 Bursitis of right foot (ICD-10 - M77.51) 03/27/2024 Bursitis of right foot (ICD-10 - M77.51) n 02/13/2024 Osteoarthritis of midtarsal joint of right foot (ICD-10 - M19.071) 03/27/2024 Calcaneal spur, right foot (ICD-10 - M77.31) n 01/03/2024 Pain in right foot (ICD-10 - M79.671) 10/30/2023 Pain in right foot (ICD-10 - M79.671) 10/30/2023 Pain in right ankle and joints of right foot (ICD-10 - M25.571) 01/03/2024 Pain in right ankle and joints of right foot (ICD-10 - M25.571) 02/13/2024 Other myositis of right foot (ICD-10 - M60.871) 03/27/2024 Other myositis of right foot (ICD-10 - M60.871) n 02/13/2024 Other myositis of left foot (ICD-10 - M60.872) 01/03/2024 Bursitis of right foot (ICD-10 - M77.51) 10/30/2023 Bursitis of right foot (ICD-10 - M77.51) 10/30/2023 Osteoarthritis of midtarsal joint of right foot (ICD-10 - M19.071) 01/03/2024 Osteoarthritis of midtarsal joint of right foot (ICD-10 - M19.071) 10/30/2023 Plantar fasciitis, bilateral (ICD-10 - M72.2) Patient Educated with: HEEL CORD STRETCHES.pdf (HEEL CORD STRETCHES.pdf ) Patient Educated with: RICE THERAPY.pdf (RICE THERAPY.pdf) 01/03/2024 Plantar fasciitis, bilateral (ICD-10 - M72.2) Resistant to previous conservative treatment right Patient Educated with: RICE THERAPY.pdf (RICE THERAPY.pdf) 01/03/2024 Calcaneal spur, right foot (ICD-10 - M77.31) 10/30/2023 Calcaneal spur, right foot (ICD-10 - M77.31) 10/30/2023 Other myositis of right foot (ICD-10 - M60.871) 01/03/2024 Other myositis of right foot (ICD-10 - M60.871) 01/03/2024 Calcaneal spur, left foot (ICD-10 - M77.32) 10/30/2023 Calcaneal spur, left foot (ICD-10 - M77.32) 10/30/2023 Other myositis of left foot (ICD-10 - M60.872) 01/03/2024 Other myositis of left foot (ICD-10 - M60.872) 03/27/2024 Other n Plan Of Treatment Pending Test Test Name Order Date X ray : Foot, left 3V 07/13/2022 X ray : Foot, left 3V 10/19/2022 [id number], [id number]/[id number], JOINT/BURSA 0 10/19/2022 34830, [id number]/[id number], JOINT/BURSA 0 10/03/2021 37675, [id number]/INJECT, JOINT/BURSA 0 07/13/2022 52656,[id number] TENDON SHEATH/LIGAMENT 1 [id number] TENDON SHEATH/LIGAMENT 0 03/27/2024 Insurance Providers Payer Name Payer Address Payer Phone Subscriber Number Group Number Insured Name Patient Relationship to Insured Coverage Start Date Coverage End Date [employer] [place] [employer] [facility] [address] [place] [address] [id number] Bernard Underwood Self - patient is the insured Medical (General) History Medical History History ICD Code Cataracts High blood pressure Measles Chicken pox Joint implants/screws Surgical History Surgery Date(Month/Year) rotator cuff 05/2010 left knee replacement 03/2020 foot surgery 02/2022
--- OUTSIDE RECORDS SUMMARY | 2024-03-31 13:39 | XMS_ITS ---
[facility] [place] Address [address] [place] [address] Care Team Providers Care Nursing Home Physician Name Role Phone Shakeel Vazquez MD Primary Care Provider Tal wahl Gabrielle Varela Unavailable [phone] Allergies No Known Allergies REASON FOR VISIT pcp 11/2023, Foot pain, Heel pain Medications Medication SIG (Take, Route, Frequency, Duration) Notes Start Date End Date Status Tamsulosin HCl 0.4 MG TAKE ONE CAPSULE B Y MOUTH EVERY DAY 30 MINUTES AFTER THE SAME MEAL EVERY DAY Oral for 90 Not-Taking Aspirin Low Dose 81 MG TAKE ONE TABLET B Y MOUTH EVERY DAY Oral for 90 Not-Taking Metoprolol Succinate ER 50 MG TAKE ONE TABLET BY MOUTH EVERY DAY Oral for 90 Not-Taking Isosorbide Mononitrate ER 30 MG TAKE ONE TABLET BY MOUTH EVERY DAY Oral for 90 Not-Taking Clopidogrel Bisulfate 75 MG TAKE ONE TABLET BY MOUTH EVERY DAY Oral for 90 Not-Taking Pneumatic Compression Boot 30mm Hg as directed over swollen feet and legs as directed for . 03/17/2022 Not-Taking Atorvastatin Calcium 40 MG TAKE TWO TABL ETS BY MOUTH AT BEDTIME Oral for 90 Not-Taking Atorvastatin Calcium 40 MG 1 tablet Oral ly Once a day for 30 day(s) Not-Taking Gabapentin 300 MG 1 capsule Orally at bedtime for 10 days 02/02/2022 Not-Taking Ibuprofen 800 MG 1 tablet every Orall y every 6 hrs for 10 days 02/02/2022 Not-Taking Isosorbide Mononitrate ER 30 MG 1 tablet in the morning Orally Once a day for 30 day(s) Not-Taking Clopidogrel Bisulfate 75 MG 1 tablet Orally Once a day for 30 day(s) Not-Taking Acetaminophen Extra Strength 500 MG 2 tablet as needed Orally every 6 hrs for 10 days 02/02/2022 Not-Taking Metoprolol Succinate ER 50 MG 1 tablet Orally Once a day for 30 days Active Night Splint AFO - L1930 1 wear at rest for 30 days Active Tamsulosin HCl 0.4 MG 1 capsule Orally O nce a day for 30 day(s) Active Aspirin Low Dose Act keaton Atorvastatin Calcium Active Social History Tobacco Use: Social History Observation Description Date Details (start date - stop date) Former Smoker NA - NA Tobacco use other than smoking: Question Answer Notes Are you an other tobacco user? No Tobacco Control (Standard) Question Answer Notes Tobacco use: Former smoker Additional Findings: Tobacco non-user Ex-cigaret te smoker AUDIT-C (Standard) Question Answer Notes Did you have a drink containing alcohol in the p ast year? 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 ; Bursitis of right foot M77.51 ; 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 ; Other myositis of right foot M60.871 and Other myositis of left foot M60.872 Assessments Encounter Date Diagnosis (ICD Code) Assessment Notes Treatment Notes Treatment Clinical Notes Section Notes 02/13/2024 Bursitis of left foot (ICD-10 - M77.52) 02/13/2024 Plantar fasciitis, bilateral (ICD-10 - M72.2) Response to treatment - Improvement 02/13/2024 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-10 - M19.072) 02/13/2024 Bursitis of right foot (ICD-10 - M77.51) 02/13/2024 Osteoarthritis of midtarsal joint of right foot (ICD-10 - M19.071) 02/13/2024 Other myositis of right foot (ICD-10 - M60.871) 02/13/2024 Other myositis of left foot (ICD-10 - M60.872) Plan Of Treatment Next Appt Details Follow Up: prn, Reason: Progress Notes * Bernard SCOTT RDOB:[birth year] (73 yo M)Acc No.[id number]:02/13/2024 Progress Notes Patient:?Bernard SCOTT Provider:?Gabrielle Varela DPM :1950???Age:73 Y???Sex:Male Marcus e:02/13/2024 Address:[address] [place], [place] [id number] Pcp:Shakeel Vazquez MD Subjective: * Chief Complaints: * ???Pcp 11/2023Foot painHeel pain * HPI: ???Foot Pain:?Nature:?aching , stiffness , swelling , throbbing.?Location:?Top , Midfoot, B/L.?Duration:?several months.?Course:?, improved, at 100 %.?Treatments:?rest/alter normal daily activity.?Heel pain:?Nature:?tenderness, sharp pain, stiffness.?Location:?Proximal plantar aspect of Heel , B/L.?Duration:?several months.?Course:?, improved, at approximately 70_ %.?Aggravated:?standing, walking, walking first thing in the morning/after rest.?Treatments:?rest/alter normal daily activity, corticosteriod injection (1R).? * ROS:?General/Constitutional:?Nausea?denies.?Vomiting?denies.?Hunger Thirst?denies.?Loss appetite?denies.?Chills?denies.?Fatigue?denies.?Fever?denies.?Night Sweats?denies.?Unexplained weight loss?denies.?Unexplained weight gain?denies.?HEENTM:?Dentures?denies.?Dizziness?denies.?Glasses/contacts?admits.?Retinopathy?de nies.?Blurred/double vision?denies.?TMJ?denies.?Discharge/drainage?denies.?Implants?denies.?Sore throat?denies.?Dental implants?denies.?Hard of hearing ?denies.?Difficulty chewing/swallowing/speaking?denies.?Nose bleeds?denies.?Sore mouth?denies.?Respiratory:?On Oxygen?denies.?Pneumonia/pleurisy?denies.?Bronchitis?denies.?Emphysema?denies.?C oughing?denies.?Cough blood?denies.?Shortness of breath?denies.?Wheezing?denies.?Cardiovascular:?Pacemaker?denies.?MVP?denies.?WPW?denies.?CHF?denies.?Heart attack?admits.?Septal defect?denies.?Rapid beat?denies.?Chest pain ?denies.?Atrial Fib.?denies.?Murmur/Palpitations?denies.?Gastrointestinal:?Hemorrhoids?denies.?Stomach/Abdominal pain?denies.?Dark blood stool?denies.?Irritable bowel ?denies.?Constipation?denies.?Diarrhea?denies.?Hematology:?Swelling?denies.?Clots?denies.?Varicose Veins?denies.?Bruising?denies.?Bleeding problem?denies.?Genitourinary:?Blood urine?denies.?Frequent/Painfu/urination/bladder control?denies.?Kidney stones?denies.?Infection (UTI)?denies.?Nephropathy?denies.?sex trans dis (STD)?denies.?Prostate?admits.?Musculoskeletal:?Hammertoes?denies.?Bunions?denies.?Back Pain?denies.?Muscle Cramps/ Resting?denies.?Muscle cramps / walking?denies.?Generalized aches and pains?denies.?Weakness?denies.?Integ.:?Meléndez?denies.?Scars?denies.?Corns/calluses?denies.?Ingrown nails?denies.?Painful nails?denies.?Open Sores?denies.?Rashes?denies.?Neurologic:?Difficulty sleeping?denies.?Brain disorder?denies.?Numbness?denies.?Balance trouble?denies.?Confusion?denies.?Fainting/blackouts?denies.?Tingling?denies.?Tr emors?denies.? * Medical History:? * Surgical History:?rotator cu ff 05/2010left knee replacement 03/2020foot surgery 02/2022 * Hospitalization/Major Diagno stic Procedure:?Denies Past Hospitalization * Family History:?Mother: joe krause, diagnosed with Unspecified essential hypertension.?Father: , diagnosed with Other malignant neoplasm of unspecified site, Diabetic - NIDDM, Unspecified essential hypertension.? * Social History:?Tobacco Use:?Tobacco use other than smoking?Are you an other tobacco user??No ?Tobacco Control (Standard)?Tobacco use:?Former smoker ?Additional Findings: Tobacco non-user?Ex-cigarette smoker ???Drugs/Alcohol:?Drugs?Have you used drugs other than those for medical reasons in the past 12 months??No ???Miscellaneous:?Caffeine: yes, 1-2 cups per day. ?Children: yes. ?Exercise: yes, walking, working, softball. ?Marital status: . ?Occupation: Works Part-time. ???Drug/Alcohol:?AUDIT-C (Standard)?Did you have a drink containing alcohol in the past year??No ?Points?0 ?Interpretation?Negative * Medications:?TakingAtorvasta tin Calcium Aspirin Low Dose Tamsulosin HCl 0.4 MG Capsule 1 capsule Orally Once a day Night Splint AFO - L1930 1 wear at rest Metoprolol Succinate ER 50 MG Tablet Extended Release 24 Hour 1 tablet Orally Once a day Taking Atorvastatin Calcium Taking Aspirin Low Dose Taking Tamsulosin HCl 0.4 MG Capsule 1 capsule Orally Once a day Taking Night Splint AFO - L1930 1 wear at rest Taking Metoprolol Succinate ER 50 MG Tablet Extended Release 24 Hour 1 tablet Orally Once a day Not-Taking/PRNClopidogrel Bisulfate 75 MG Tablet 1 tablet Orally Once a day Isosorbide Mononitrate ER 30 MG Tablet Extended Release 24 Hour 1 tablet in the morning Orally Once a day Acetaminophen Extra Strength 500 MG Tablet 2 tablet as needed Orally every 6 hrs Pneumatic Compression Boot 30mm Hg wear as directed over swollen feet and legs as directed Ibuprofen 800 MG Tablet 1 tablet every Orally every 6 hrs Gabapentin 300 MG Capsule 1 capsule Orally at bedtime Atorvastatin Calcium 40 MG Tablet 1 tablet Orally Once a day Atorvastatin Calcium 40 MG Tablet TAKE TWO TABLETS BY MOUTH AT BEDTIME Oral Metoprolol Succinate ER 50 MG Tablet Extended Release 24 Hour TAKE ONE TABLET BY MOUTH EVERY DAY Oral Clopidogrel Bisulfate 75 MG Tablet TAKE ONE TABLET BY MOUTH EVERY DAY Oral Isosorbide Mononitrate ER 30 MG Tablet Extended Release 24 Hour TAKE ONE TABLET BY MOUTH EVERY DAY Oral Aspirin Low Dose 81 MG Tablet Delayed Release TAKE ONE TABLET BY MOUTH EVERY DAY Oral Tamsulosin HCl 0.4 MG Capsule TAKE ONE CAPSULE BY MOUTH EVERY DAY 30 MINUTES AFTER THE SAME MEAL EVERY DAY Oral Medication List reviewed and reconciled with the patientNot-Taking/PRN Clopidogrel Bisulfate 75 MG Tablet 1 tablet Orally Once a day Not-Taking/PRN Isosorbide Mononitrate ER 30 MG Tablet Extended Release 24 Hour 1 tablet in the morning Orally Once a day Not-Taking/PRN Acetaminophen Extra Strength 500 MG Tablet 2 tablet as needed Orally every 6 hrs Not-Taking/PRN Pneumatic Compression Boot 30mm Hg wear as directed over swollen feet and legs as directed Not-Taking/PRN Ibuprofen 800 MG Tablet 1 tablet every Orally every 6 hrs Not-Taking/PRN Gabapentin 300 MG Capsule 1 capsule Orally at bedtime Not-Taking/PRN Atorvastatin Calcium 40 MG Tablet 1 tablet Orally Once a day Not-Taking/PRN Atorvastatin Calcium 40 MG Tablet TAKE TWO TABLETS BY MOUTH AT BEDTIME Oral Not-Taking/PRN Metoprolol Succinate ER 50 MG Tablet Extended Release 24 Hour TAKE ONE TABLET BY MOUTH EVERY DAY Oral Not-Taking/PRN Clopidogrel Bisulfate 75 MG Tablet TAKE ONE TABLET BY MOUTH EVERY DAY Oral Not-Taking/PRN Isosorbide Mononitrate ER 30 MG Tablet Extended Release 24 Hour TAKE ONE TABLET BY MOUTH EVERY DAY Oral Not-Taking/PRN Aspirin Low Dose 81 MG Tablet Delayed Release TAKE ONE TABLET BY MOUTH EVERY DAY Oral Not-Taking/PRN Tamsulosin HCl 0.4 MG Capsule TAKE ONE CAPSULE BY MOUTH EVERY DAY 30 MINUTES AFTER THE SAME MEAL EVERY DAY Oral Medication List reviewed and reconciled with the patient * Allergies:?N.K.D.A.yes[Aller gies Verified] Objective: * Vitals:?Ht: 5ft 10in, Wt:200 , BMI:28.69, Shoe size: 11, BP:136/85mm Hg, Ht-cm: 177.8 cm, Wt-k.72 kg. * Examination: ???General Examination: ?GENERAL APPEARANCE:?Reveals a pleasant, alert, well nourished, well- developed, well hydrated individual, who demonstrates proper attention to hygiene/body habitus, and is in no acute distress, Pt serves as own historian for office visit today.?ORIENTED:?person, place, and time.?Vascular: ?DP PULSES(B):?2/4, B/L.?PT PULSES(B):?2/4, B/L.?CAPILLARY FILL TIME:?immediate, all digits, B/L.?TROPHIC CONDITION-TEXTURE/ELASTICITY/TURGOR/HAIR GROWTH(B):?normal, B/L.?TEMPERTURE GRADIENT(C):?normal, warm to cool, proximal to distal, B/L, B/L.?Neurological: ?SENSORY:?Neurological exam reveals intact sensorium, pain sensation normal, vibration sensation intact, pinprick sensation is normal in the lower extremities, Pt denies, anesthesia, burning, paresthesia, tingling, B/L.?TINEL'S COMPRESSION:? Negative, Medial dorsal cutaneous nerve distribution, Intermediate dorsal cutaneous nerve distribution, Deep peroneal nerve distribution, B/L ,.?Heel Pain: ?INSPECTION REVEALS:?Pain on Palpation to Plantar Fascia med. and central bands, intrinsic musc., infra-calcaneal bursa, and med calc tubercle, B/L, No pain: posterior/superior heel, achilles bursa/tendon, sinus tarsi, peroneals, or with lateral heel compression; no limited STJ ROM, calor, or ecchymosis , B/L, Approximately 70 percent LESS.?Orthopedic: ?MUSCLE STRENGTH:?5/5 all groups in a symmetrical fashion, B/L.?FOOT MORPHOLOGY:?B/L , Pes Planus structure, Decreased Ankle joint dorsiflexion ROM, knee extended , dorsal , midfoot b/l.?FOOTWEAR:?, good condition.? 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 Plan: * Treatment: * Procedure Codes:? * Preventive Medicine:? ??Counseling:?Discussion:?-12: Office or other outpatient visit for the evaluation and management of an established patient, which required a medically appropriate history and/or examination and STRAIGHTFORWARD level of MEDICAL DECISION MAKING, 1 SELF-LIMITED OR MINOR PROBLEM, MINIMAL- NO AMOUNT/COMPLEXITY OF DATA TO BE REVIEWED/ANALYZED, AND MINIMAL RISK OF COMPLICATION/MORBIDITY. The visit on the day of the encounter encompassed interpreting the data and educating the patient as to the nature of their condition, treatment options available according to their individual PMH, meds, allergies, and overall health/living conditions, as well as any potential risks or complications that may occur from a failure to adhere to, and participate in, the recommended course of therapy. The discussion included a complete verbal, and/or written explanation of the examination results, any x-rays taken, the proposed diagnosis, and outline of the treatment plan. A schedule for future care needs was also explained. The patient verbalized an understanding of the instructions at this time and agreed to be an active participant in their treatment. If the patient should think of any questions or concerns after the visit, I have encouraged the patient to call the office, Given recent successful results to treatment, The patient wishes to continue with the present treatment plan for their condition.? ??Screening/Special Tests:?FALLS: Screening for Future Fall Risk?Have you had two or more falls in the past year??No ?Have you had any falls with injury in the past year??No * Follow Up:?prn * Images: * Sign off status: Completed true * Provider:?Gabrielle Varela DPM Date:?2023 Generated for Bladimir green/Laila/Regino on:?03/31/2024 01:39 PM EST History and Physical Notes * HPI (History of Present Illness) Category Sub-Category Detail Notes Category Not es Heel pain Duration: several months Nature: tenderness, sharp pa in, stiffness Location: Proximal plantar asp ect of Heel , B/L Aggravated: standing, walking, w alking first thing in the morning/after rest Course: , improved, at appro ximately 70_ % Treatments: rest/alter normal da ammy activity, corticosteriod injection (1R) Foot Pain Nature: aching , stiffness , swellin g , throbbing Location: Top , Midfoot, B/L Duration: several months Course: , improved, at 100 % Treatments: rest/alter normal da ammy activity Examination Category Sub-Category Detail Notes Category Not es Heel Pain INSPECTION REVEALS: Pain on Palp ation to Plantar Fascia med. and central bands, intrinsic musc., infra-calcaneal bursa, and med calc tubercle, B/L, No pain: posterior/superior heel, achilles bursa/tendon, sinus tarsi, peroneals, or with lateral heel compression; no limited STJ ROM, calor, or ecchymosis , B/L, Approximately 70 percent LESS Neurological SENSORY: Neurological exa m reveals intact sensorium, pain sensation normal, vibration sensation intact, pinprick sensation is normal in the lower extremities, Pt denies, anesthesia, burning, paresthesia, tingling, B/L TINEL'S COMPRESSION: Negative, Medial do rsal cutaneous nerve distribution, Intermediate dorsal cutaneous nerve distribution, Deep peroneal nerve distribution, B/L , Orthopedic GAIT ABNORMALITY: FOOT MORPHOLOGY: B/L , Pes Planus str ucture, Decreased Ankle joint dorsiflexion ROM, knee extended , dorsal , midfoot b/l FOOTWEAR: , good condition MUSCLE STRENGTH: 5/5 all groups in a symmetrical fashion, B/L General Examination GENERAL APPEARANCE: Reveals a pleasant, alert, well nourished, well-developed, well hydrated individual, who demonstrates proper attention to hygiene/body habitus, and is in no acute distress, Pt serves as own historian for office visit today ORIENTED: person, place, and t bobo Vascular DP PULSES (B): 2/4, B/L PT PULSES (B): 2/4, B/L CAPILLARY FILL TIME: immediate, all digi ts, B/L TEMPERTURE GRADIENT (C): normal, warm to cool, proximal to distal, B/L, B/L TROPHIC CONDITION-TEXTURE/ELASTICITY/TURGOR/HAIR GROWTH (B): normal, B/L
--- OUTSIDE RECORDS SUMMARY | 2024-03-31 13:40 | XMS_ITS ---
Author Organization [facility] Address [address] [place] [address] Care Team Providers Care Emergency Room Physician Name Role Phone Shakeel Vazquez MD Primary Care Provider UnaGabrielle Harrington Unavailable [phone] REASON FOR VISIT cortisone inj Encounters Encounter Location Date Provider Diagnosis [facility] [address] [place] [address] 03/20/2024 Gabrielle Varela Plan Of Treatment No Information Progress Notes * Bernard SCOTT RDOB:[birth year] (73 yo M)Acc No.[id number]:03/20/2024 Patient:?Bernard SCOTT :1950???Age:73 Y???Sex:Male Address:[place] [address] * true * Date:? Generated for Printi norma/Laila/eTransmitting on:?03/31/2024 01:40 PM EST
--- OUTSIDE RECORDS SUMMARY | 2024-03-31 13:40 | XMS_ITS ---
[facility] [place] Address [address] [place] [address] Care Team Providers Care Mark Up Designer Name Role Phone Shakeel Vazquez MD Primary Care Provider Tal wahl Gabrielle Vraela Unavailable [phone] Allergies No Known Allergies REASON FOR VISIT Heel pain Medications Medication SIG (Take, Route, Frequency, Duration) Notes Start Date End Date Status Clopidogrel Bisulfate 75 MG 1 tablet Orally Once a day for 30 day(s) Not-Taking Metoprolol Succinate ER 50 MG 1 tablet Orally Once a day for 30 days Active Pneumatic Compression Boot 30mm Hg as directed over swollen feet and legs as directed for . 03/17/2022 Not-Taking Acetaminophen Extra Strength 500 MG 2 tablet as needed Orally every 6 hrs for 10 days 02/02/2022 Not-Taking Isosorbide Mononitrate ER 30 MG 1 tablet in the morning Orally Once a day for 30 day(s) Not-Taking Night Splint AFO - L1930 1 wear at rest for 30 days Active Tamsulosin HCl 0.4 MG 1 capsule Orally O nce a day for 30 day(s) Active Tamsulosin HCl 0.4 MG TAKE ONE CAPSULE B Y MOUTH EVERY DAY 30 MINUTES AFTER THE SAME MEAL EVERY DAY Oral for 90 Not-Taking Aspirin Low Dose Act keaton Atorvastatin Calcium Active Aspirin Low Dose 81 MG TAKE ONE [...] MOUTH EVERY DAY Oral for 90 Not-Taking Atorvastatin Calcium 40 MG TAKE TWO TABL ETS BY MOUTH AT BEDTIME Oral for 90 Not-Taking Atorvastatin Calcium 40 MG 1 tablet Oral ly Once a day for 30 day(s) Not-Taking Gabapentin 300 MG 1 capsule Orally at bedtime for 10 days 02/02/2022 Not-Taking Ibuprofen 800 MG 1 tablet every Orall y every 6 hrs for 10 days 02/02/2022 Not-Taking Social History Tobacco Use: Social History Observation [...] Problem Status W/U Status Risk Notes Problem [id number] Plantar fasciitis, right (M72.2) Active confirmed Vital Signs Height [id number] in 03/27/2024 Weight 200 lbs 03/27/2024 BMI 28.69 kg/m2 03/27/2024 Blood pressure systolic 125 mm Hg 03/27/19 25 Blood pressure diastolic 81 mm Hg 025 Procedures Procedure Date Ordered Date Performed Result Body Sit e 20212,V4808-[id number] TENDON SHEATH/LIGAMENT 03/27/2024 N/A Encounters Encounter Location Date Provider Diagnosis [facility] [address] [address] 03/27/2024 Gabrielle Black Pain in right foot M79.671 ; Plantar fasciitis, right M72.2 ; Pain in right ankle and joints of right foot M25.571 ; Bursitis of right foot M77.51 ; Calcaneal spur, right foot M77.31 and Other myositis of right foot M60.871 Assessments Encounter Date Diagnosis (ICD Code) Assessment Notes Treatment Notes Treatment Clinical Notes Section Notes 03/27/2024 Pain in right foot (ICD-10 - M79.671) n 03/27/2024 Plantar fasciitis, right (ICD-10 - M72.2) Patient Educated with: RICE THERAPY.pdf (RICE THERAPY.pdf) Patient Educated with: INJECTIONTHERA PY.pdf (INJECTIONTHER APY.pdf) n 03/27/2024 Pain in right ankle and joints of right foot (ICD-10 - M25.571) n 03/27/2024 Bursitis of right foot (ICD-10 - M77.51) n 03/27/2024 Calcaneal spur, right foot (ICD-10 - M77.31) n 03/27/2024 Other myositis of right foot (ICD-10 - M60.871) n 03/27/2024 Other n Plan Of Treatment Treatment Notes Assessment Notes Plantar fasciitis, right Patient Educate d with: RICE THERAPY.pdf (RICE THERAPY.pdf) Patient Educated with: INJECTIONTHERAPY.pdf (INJECTIONTHERAPY.pdf) Pending Test Test Name Order Date ,[id number] TENDON SHEATH/LIGAMENT 0 03/27/2024 Next Appt Details Follow Up: 6 Weeks, Reason: Procedure Notes * Category Sub-Category Detail Notes Injection Tendon Sheath or Fascia , J 07 Injection - Plantar Fascia w/ mixture of Celestone Soluspan 3mg and 1cc 1 percent Xylocaine Plain anes. utilizing aseptic technique. The patient tolerated the procedure well. A dry sterile dressing was applied. Post injection instructions were dispensed, verbally discussed, and confirmed understood by the patient. I explained that a steroid and local anesthetic injections are administered to relieve pain and inflammation and thereby meant to improve function. I explained the possible complications including but not limited to signs/symptoms of steroid flare, infection, bruising, atrophy, discoloration of skin, change/deviation in toe position, and that additional injections may be necessary, Patient relates post-procedural pain assessment improved at ( 0-1) out of 10 , RIGHT foot Progress Notes * Bernard SCOTT RDOB:[birth year] (73 yo M)Acc No.[id number]:03/27/2024 Progress Note Patient:?Bernard SCOTT Provider:?Gabrielle Varela DPM :1950???Age:73 Y???Sex:Male Marcus e:03/27/2024 Address:[address] [place], [place] [id number] Pcp:Shakeel Vazquez MD Subjective: * Chief Complaints: * ???Heel pain * HPI: ???Heel pain:?Nature:?tenderness, sharp pain, stiffness.?Location:?Proximal plantar aspect of Heel , RIGHT.?Duration:?several months.?Course:?worse right? from wearing a pair of dress shoes.?Aggravated:?standing, walking, walking first thing in the morning/after rest.?Treatments:?rest/alter normal daily activity , stretching,inserts, corticosteriod injection (1R).?Misc:?Patient states previous conservative therapy has not provided acceptable relief. Despite previous treatments/efforts, patient continues to relate substantial pain and significant functional disability during activity.? * ROS:?General/Constitutional:?Nausea?denies.?Vomiting?denies.?Hunger Thirst?denies.?Loss appetite?denies.?Chills?denies.?Fatigue?denies.?Fever?denies.?Night Sweats?denies.?Unexplained weight loss?denies.?Unexplained [...] an other tobacco user??No ?Tobacco Control (Standard)?Tobacco use:?Nonsmoker ?Additional Findings: Tobacco non-user?Ex-cigarette smoker ???Miscellaneous:?Caffeine: yes, 1-2 cups per day. ?Children: yes. ?Exercise: yes, walking, working, softball. ?Marital status: . ?Occupation: Works Part-time. * Medications:?TakingAtorvasta tin Calcium Aspirin Low Dose [...] * Allergies:?N.K.D.A.yes[Aller gies Verified] Objective: * Vitals:?Ht: 0yh36cu, Wt:200, BMI:28.69, Shoe size: 11, BP:125/81mm Hg, Ht-cm: 177.8 cm, Wt-k.72 kg. * Examination: ???General Examination: ?GENERAL APPEARANCE:?Reveals a pleasant, alert, well nourished, well- developed, well hydrated individual, who demonstrates proper attention to hygiene/body habitus, and is in no acute distress, Pt serves as own historian for office visit today.?ORIENTED:?person, place, and time.?Vascular: ?DP PULSES (B):?2/4, B/L.?PT PULSES (B):?2/4, B/L.?CAPILLARY FILL TIME:?immediate, all digits, B/L.?TROPHIC CONDITION-TEXTURE/ELASTICITY/TURGOR/HAIR GROWTH (B):?normal, B/L.?TEMPERTURE GRADIENT (C):?normal, warm to cool, proximal to distal, B/L, B/L.?Heel Pain: ?INSPECTION REVEALS:?Pain on Palpation to Plantar Fascia med. and central bands, intrinsic musc., infra-calcaneal bursa, and med calc tubercle, B/L, No pain: posterior/superior heel, achilles bursa/tendon, sinus tarsi, peroneals, or with lateral heel compression; no limited STJ ROM, calor, or ecchymosis , Right?.? Assessment: * Assessment: 1.?Pain in right foot - M79. 671???2.?Plantar fasciitis, right - M72.2 (Primary)???3.?Pain in right ankle and joints of right foot - M25.571???4.?Bursitis of right foot - M77.51???5.?Calcaneal spur, right foot - M77.31???6.?Other myositis of right foot - M60.871??? n Plan: * Treatment: * Procedures:?Injection:?Tendon Sheath or Fascia?85794, J0702 Injection - Plantar Fascia w/ mixture of Celestone Soluspan 3mg and 1cc 1 percent Xylocaine Plain anes. utilizing aseptic technique. The patient tolerated the procedure well. A dry sterile dressing was applied. Post injection instructions were dispensed, verbally discussed, and confirmed understood by the patient. I explained that a steroid and local anesthetic injections are administered to relieve pain and inflammation and thereby meant to improve function. I explained the possible complications including but not limited to signs/symptoms of steroid flare, infection, bruising, atrophy, discoloration of skin, change/deviation in toe position, and that additional injections may be necessary, Patient relates post-procedural pain assessment improved at ( 0-1) out of 10 , RIGHT foot.? * Procedure Codes:?39978 INJ T ENDON SHEATH/LIGAMENT, Modifiers: XS J0702 INJ BETAMETHSN ACTAT&SOD PHOSPH-3MG * Follow Up:?6 Weeks * Images: * Sign off status: Completed true * Provider:?Gabrielle Varela DPM Date:?2024 Generated for Bladimir green/Laila/Regino on:?03/31/2024 01:39 PM EST History and Physical Notes * HPI (History of Present Illness) Category Sub-Category Detail Notes Category Not es Heel pain Duration: several months Nature: tenderness, sharp pa in, stiffness Location: Proximal plantar asp ect of Heel , RIGHT Aggravated: standing, walking, w alking first thing in the morning/after rest Course: worse right from wea ring a pair of dress shoes Treatments: rest/alter normal da ammy activity , stretching,inserts, corticosteriod injection (1R) Misc: Patient states previ ous conservative therapy has not provided acceptable relief. Despite previous treatments/efforts, patient continues to relate substantial pain and significant functional disability during activity Examination Category Sub-Category Detail Notes Category Not es Heel Pain INSPECTION REVEALS: Pain on Palp ation to Plantar Fascia med. and central bands, intrinsic musc., infra-calcaneal bursa, and med calc tubercle, B/L, No pain: posterior/superior heel, achilles bursa/tendon, sinus tarsi, peroneals, or with lateral heel compression; no limited STJ ROM, calor, or ecchymosis , Right Neurological SENSORY: TINEL'S COMPRESSION: General Examination GENERAL APPEARANCE: Reveals a pleasant, [...]
== END 2024-03-31 09:47 | disposition home or self-care (01) ==
PROVIDERS: PCP Family Medicine; Visit Provider Orthopaedic Surgery
DX: M23.309 Other meniscus derangements, unspecified meniscus, unspecified knee (principal)
CPT/HCPCS: 99214

== ENCOUNTER → 2024-03-31 09:19 | Outpatient (BNVA) | payer MEDICARE, SELFPAY | PROVIDERS: PCP Family Medicine; Visit Provider Orthopaedic Surgery | DX: M23.306 Other meniscus derangements, unspecified meniscus, right knee (principal); Z91.81 History of falling | CPT/HCPCS: 99212 ==